=== PATIENT | male | born 1965 | race Asian ===

== ENCOUNTER → 2022-07-17 11:02 | Outpatient (CLI) | payer OTHER, MEDICAID, SELFPAY ==
[2022-07-17 19:21] LABS: Add Manual Diff / Slide Review NO; Basophils Absolute Auto 0 /uL (0-100); Basophils Percent Auto 0.4 % (0-2); Eosinophils Absolute Auto 100 /uL (0-450); Eosinophils Percent Auto 1.9 % (2-4); Hematocrit 41.9 % (41-53); Hemoglobin 14.6 g/dL (13.5-17.5); Lymphocytes Absolute Auto 1900 /uL (1100-4500); Lymphocytes Percent Auto 32.8 % (25-40); Mean Corpuscular HGB Conc 34.9 % (30-36); Mean Corpuscular Hemoglobin 31.7 PG (26-34); Mean Corpuscular Volume 90.6 fL (80-100); Monocytes Absolute Auto 500 /uL (0-900); Monocytes Percent Auto 9.2 % (3-14); Neutrophils Absolute Auto 3100 /uL (1500-7000); Neutrophils Percent Auto 55.7 % (50-75); Platelet Count 174 X10^3/uL (150-400); Red Blood Cell Count 4.63 X10^6/uL (4.5-5.9); Red Cell Distribution Width 13.9 % (11.6-14.8); White Blood Cell Count 5.7 X10^3/uL (4.5-11.0)
[2022-07-17 19:35] LABS: Alanine Aminotransferase 57 IU/L (<50); Albumin 4.1 g/dL (3.5-5.0); Albumin Globulin Ratio 1.4 (1.0-2.8); Alkaline Phosphatase 71 U/L (38-126); Aspartate Aminotransferase 31 IU/L (17-59); BUN Creatinine Ratio 21.4 (6-22); Bilirubin Total 0.6 mg/dL (0.2-1.3); Blood Urea Nitrogen 18 mg/dL (9-20); Calcium 8.6 mg/dL (8.4-10.2); Carbon Dioxide 24 mmol/L (22-32); Chloride 107 mmol/L (98-107); Cholesterol 186 mg/dL (140-199); Estimated Glomerular Filt Rate > 60 mL/min (>60); Globulin 2.9 g/dL (1.7-4.1); Glucose 90 mg/dL (70-100); HDL Cholesterol 62 mg/dL (40-60); HEMOLYSIS < 15 (0-50); LDL Cholesterol Calculated 112 mg/dL (<100); Potassium 4.2 mmol/L (3.4-5.1); Sodium 137 mmol/L (137-145); Triglycerides 61 mg/dL (35-150); Uric Acid 6.2 mg/dL (3.5-8.5)
[2022-07-17 19:57] LABS: Thyroid Stimulating Hormone 0.611 uIU/mL (0.47-4.68)
== END ==
PROVIDERS: Family Provider Family Medicine; PCP Family Medicine; Visit Provider Family Medicine
DX: M79.674 Pain in right toe(s) (principal); Z13.6 Encounter for screening for cardiovascular disorders; I10 Essential (primary) hypertension
CPT/HCPCS: 80053; 80061; 84443; 84550; 85025

== ENCOUNTER → 2022-08-19 14:02 | Outpatient (CLI) | payer OTHER, MEDICAID, SELFPAY ==
[2022-08-19 19:43] LABS: Prostate Specific Antigen Scrn 0.387 ng/mL (0.1-4.0)
[2022-08-21 01:42] LABS: HBsAg Screen Negative (Negative); Hepatitis A Antibody IgM Negative (Negative); Hepatitis B Core Antibody IgM Negative (Negative); Hepatitis C Antibody Non Reactive (Non Reactive)
== END ==
PROVIDERS: Family Provider Family Medicine; PCP Family Medicine; Visit Provider Family Medicine
DX: R74.01 Elevation of levels of liver transaminase levels (principal); Z12.5 Encounter for screening for malignant neoplasm of prostate
CPT/HCPCS: 80074; G0103

== ENCOUNTER → 2024-11-18 08:57 | Outpatient (CLI) | payer BC, SELFPAY ==
[2024-11-18 18:41] LABS: Add Manual Diff / Slide Review NO; Hematocrit 43.8 % (41-53); Hemoglobin 15.3 g/dL (13.5-17.5); Lymphocytes Absolute Auto 1600 /uL (1100-4500); Mean Corpuscular HGB Conc 34.9 % (30-36); Mean Corpuscular Hemoglobin 31.9 PG (26-34); Mean Corpuscular Volume 91.4 fL (80-100); Platelet Count 195 X10^3/uL (150-400)
[2024-11-18 18:51] LABS: Alanine Aminotransferase 49 IU/L (<50); Albumin 4.3 g/dL (3.5-5.0); Albumin Globulin Ratio 1.5 (1.0-2.8); Alkaline Phosphatase 57 U/L (38-126); Blood Urea Nitrogen 17 mg/dL (9-20); Calcium 8.9 mg/dL (8.4-10.2); Carbon Dioxide 22 mmol/L (22-32); Chloride 106 mmol/L (98-107); Cholesterol 197 mg/dL (140-199); Estimated Glomerular Filt Rate > 60 mL/min (>60); Globulin 2.9 g/dL (1.7-4.1); Glucose 96 mg/dL (70-99); HDL Cholesterol 62 mg/dL (40-60); HEMOLYSIS 16 (0-50); Potassium 4.4 mmol/L (3.4-5.1); Sodium 136 mmol/L (137-145); Total Protein 7.2 g/dL (6.3-8.2); Triglycerides 62 mg/dL (35-150)
[2024-11-18 19:35] LABS: TSH w/ Reflex to FT4 0.46 uIU/mL (0.47-4.68)
[2024-11-18 20:02] LABS: Free T4, Direct Thyroxine 1.19 ng/dL (0.78-2.19)
== END ==
PROVIDERS: PCP Family Medicine; Visit Provider Physician Assistant
DX: Z12.5 Encounter for screening for malignant neoplasm of prostate (principal); R74.01 Elevation of levels of liver transaminase levels; I10 Essential (primary) hypertension; M25.50 Pain in unspecified joint; Z13.6 Encounter for screening for cardiovascular disorders
CPT/HCPCS: 80053; 80061; 84439; 84443; 85025; G0103

== ENCOUNTER → 2025-01-05 11:51 | Outpatient (CLI) | payer BC, SELFPAY ==
--- NOTE | 2025-01-05 11:53 | DI.MRI.S_ITS ---
PROCEDURE: MR SHOULDER RT WO CON
== END ==
LOC: MRI 11:52
PROVIDERS: PCP Family Medicine; Referring Provider Physician Assistant; Visit Provider Physician Assistant
DX: M75.111 Incomplete rotator cuff tear or rupture of right shoulder, not specified as traumatic (principal); S43.431A Superior glenoid labrum lesion of right shoulder, initial encounter; M75.51 Bursitis of right shoulder; M77.8 Other enthesopathies, not elsewhere classified; M25.511 Pain in right shoulder; M65.921 Unspecified synovitis and tenosynovitis, right upper arm
CPT/HCPCS: 73221

== ENCOUNTER 2025-02-02 06:15 | Day surgery (SDC) | payer BC, SELFPAY ==
[2025-01-19 08:43] VITALS: BMI 30.8
[2025-02-02] MEDS: LACTATED RINGERS 1,000 ML 42 ML IV (06:46)
[2025-02-02] MEDS: ACETAMINOPHEN 325 MG TABLET 975 MG PO (06:46)
[2025-02-02 06:57] VITALS: BP 152/93; PULSE 54; RESP 16; TEMP 36.4; O2SAT 99
--- NOTE | 2025-02-02 07:14 | PM.PREOP ---
Pre-operative Note Interval Note History & Physical reviewed/Exam performed by Physician: Yes Changes to H&P: No
--- NOTE | 2025-02-02 08:28 | SUR.OPER ---
Beach chair with trimano shoulder positioner. Lower body on padded OR bed, lateral hip post to operative side per surgeon direction. Head in foam padded head cradle, secured with straps. Non-operative arm secured <90 degrees abduction with gel pad under elbow and forearm. Pillow under knees, tape over blanket across chest. Safety belt at thigh. Cloth tape over blanket over lower legs. Surgeon approved final position prior to start of procedure.
[2025-02-02] MEDS: SODIUM CHLORIDE IRRIG SOLUTION 3,000 ML, EPINEPHrine 3 MG IRR ×2 (08:46→09:34)
[2025-02-02 10:48] VITALS: BP 130/78; PULSE 68; RESP 16; TEMP 36.8; O2SAT 98
[2025-02-02 10:53] VITALS: BP 145/78; PULSE 93; RESP 16; TEMP 36.2; O2SAT 95
[2025-02-02 10:58] VITALS: BP 145/85; PULSE 68; RESP 16; O2SAT 98
[2025-02-02 11:02] VITALS: BP 141/83; PULSE 66; RESP 16; TEMP 36.2; O2SAT 98
--- NOTE | 2025-02-02 11:02 | P.OP_ITS ---
Operative Date/Time/Diagnoses Date of procedure: 02/02/25 Time of procedure: 07:45 Pre-op diagnosis: RIGHT shoulder rotator cuff tear, AC joint osteoarthritis and possible SLAP tear Post-op diagnosis: same Procedure & Clinicians Procedure: Right shoulder arthroscopy, rotator cuff repair, open distal clavicle excision and open proximal biceps tenodesis Same procedure(s) as scheduled: Yes Surgeon: Brayan Navarro Assisted?: Yes Enterprise Account Manager: Ana Francois Anesthesia Type: General Operative Notes Findings: Full-thickness rotator cuff tear, slap tear Closure Type: primary Specimen(s): none sent Applied: none Estimated Blood Loss (mL): 20 Blood products transfused: none Procedure in detail: Patient Name: GAYLE PAREDES Date of Operation: 02/02/25 Preoperative diagnosis: Right Shoulder Rotator Cuff Tear, Biceps Tendinopathy and Acromioclavicular Osteoarthritis Procedure performed: Right Shoulder Diagnostic Arthroscopy, Rotator Cuff Repair, Open Biceps Tenodesis and Open Distal Clavicle Excision Postoperative diagnosis: Same Primary Surgeon: Brayan Navarro MD Secondary Surgeon: DAVID Cyr Physician Enterprise Account Manager was used throughout the entirety of the case. They assisted with room set up, patient positioning, draping, retraction, reduction, fixation and closure. They were essential for the success of the case. Anesthesia: General EBL: 20 ml Implants: Arthrex Knotless 2.6 Fiber Isreal x1 as a medial row Arthrex Proximal Biceps Tenodesis Button Indication for Surgery: Nonoperative management failed to resolve symptoms. The risks, benefits, and alternatives were discussed. Risks included pain, bleeding, infection, damage to nearby structures, lack of symptom relief, implant complications, stiffness, need for further surgeries, DVT, PE, stroke, and even . They signed a written consent form. Examination Under Anesthesia: ROM: Forward flexion 170, abduction 170 Anterior load and shift: Grade 1 Posterior load and shift: Grade 1 Inferior sulcus: Grade 1 Diagnostic Findings: Rotator interval: Normal Biceps tendon & SLAP: Fall SLAP tear. No degeneration to the biceps tendon Subscapularis: Intact Rotator Cuff: Full-thickness rotator cuff tear of the supraspinatus HAGL: No HAGL Labrum: Intact Glenoid Cartilage: Grade 2-3 chondromalacia Humeral Head Cartilage: Mild chondromalacia Procedure in Detail: The patient was met in the preoperative holding on the day of the procedure. Operative extremity was signed. Consent was verified. The patient desired to proceed. Regional anesthesia was obtained in the preoperative area. They were brought to the operating room and surrendered to anesthesia. Once general anesthesia was obtained they were placed in the beach chair position. All bony prominences were well-padded. They were then prepped and draped in the standard sterile fashion. A surgical timeout was held to confirm the patient procedure, identity, laterality, allergies, images, and antibiotics. All were in agreement and we proceeded. A standard diagnostic arthroscopy was performed utilizing posterior and anterior superior portal sites. The anterior superior portal site was created under direct visualization. The findings of the diagnostic arthroscopy can be found above. Was unable to visualize the full-thickness tear from inside the joint. Biceps tendon was cut using arthroscopic scissors and debrided back with a sucker shaver. Mini-Open Subpectoral Biceps Tenodesis: We then turned our attention to the biceps tenodesis, a 4 cm longitudinal incision was made near the axillary fold centered over the inferior border of the pectoralis major tendon. Electrocautery was used to obtain hemostasis. The fascia was opened with dissection scissors in line with the course of the neurovascular structures. Blunt digital dissection was used to identify the intertubercular groove just under the pectoralis major tendon. The long head of the biceps tendon was visualized within this interval. The short head of the biceps was retracted with my finger and the right angle was used to deliver the tendon of the long head of the biceps out of the wound. The groove was then prepared with a rogers elevator. The drill for the biceps button was placed at the inferior edge of the pec major tendon within the groove. The drill was then removed and the button placed. The tendon was then reduced down on to the surface of the humerus. A free needle was used to place a throw through the biceps tendon and this was tied. The suture limbs were cut and the wound was irrigated. The subcutaneous tissue was closed using interrupted 2- 0 Vicryl followed by running 3-0 Monocryl in subcuticular fashion. Subacromial Decompression: The obturator was placed into the subacromial space along the underside of the acromion from the posterior portal passing lateral to the coracoacromial ligament and out the anterior incision. The crystal cannula was threaded over this and the serfas wand was placed into the cannula. The camera was inserted and the cannula was backed out until the camera and instruments were in the subacromial space. The serfas wand was used to excise tissue from the underside of the acromion and establish a small space for viewing. The leading edge of the CA ligament was released. A lateral incision was made after localization with a spinal needle. The shaver was inserted and the bursa was excised completely, taking care to excise all bursa from the anterior and lateral gutters. The rotator cuff was protected throughout. The rotator cuff was found to have a full thickness tear and would require a repair. The shaver was then used to mee the underside of the acromion of all portions that were downsloping or not smooth. The shoulder was taken through a range of motion and the bursa was found to be fully excised. Rotator Cuff Repair: The rotator cuff tear was identified from the subacromial space. It was decided that this would require a single row repair with the Knotless 2.6 Fiber Taks. A Arthrex passport was placed into our lateral portal. An additional portal was created as a viewing portal. The tendon was tested and it was mobile and could be reduced to the original footprint. The frayed edges of the rotator cuff were debrided back. The new footprint was debrided of soft tissue. A spinal needle was placed vertically just lateral to the acromion to determine the trajectory of the implants. We utilized one implant that was placed just lateral to the humeral head cartilage in the old rotator cuff foot print. The suture limbs were left out of the percutaneous portal. One of the repair stitches was grabbed through the passport. The scorpion was loaded and the suture was passed through the anterior portion of the rotator cuff tendon. The free end was then passed out anteriorly to keep it out of the way. The second repair stitch was brought through the passport, scorpion loaded and passed through the rotator cuff tendon slightly posterior to the first pass. All four limbs of the anterior implant were then passed through the passport. The shuttling suture was loaded and the repair sutures were passed through the implant. They were not secured tightly yet, because we did not want to closed down the repair before throwing the other sutures. After further visualization of the repair it was identified that posteriorly there was still a small dog ear. Utilizing the free sutures that were coming out of the implant we through 1 suture through the dog-ear using the scorpion. We then hand tied the 2 free ends together which brought down the dog-ear nicely. The shoulder was taken through a range of motion which demonstrated a fully repair rotator cuff which moved continuously with the movement of the shoulder. Final images were obtained and the instruments were removed from the shoulder. The incisions were closed with 3-0 Nylon, sterile dressing and sling were applied. Postoperative Plan: Same day discharge Sling use for 6 weeks Physical Therapy consult placed Follow up with ortho in 2 weeks for suture removal and clinical examination Brayan Navarro MD Complications: none Post-operative Condition: stable Disposition: PACU
== END 2025-02-02 11:44 | disposition home or self-care (01) ==
PROVIDERS: PCP Family Medicine; Referring Provider Orthopaedic Surgery; Visit Provider Orthopaedic Surgery
PROC: (CPT 29827; principal; 2025-02-02 07:45)
DX: M75.121 Complete rotator cuff tear or rupture of right shoulder, not specified as traumatic (principal); M19.011 Primary osteoarthritis, right shoulder; S43.431A Superior glenoid labrum lesion of right shoulder, initial encounter; M75.21 Bicipital tendinitis, right shoulder; G89.18 Other acute postprocedural pain; F17.210 Nicotine dependence, cigarettes, uncomplicated; M94.211 Chondromalacia, right shoulder
CPT/HCPCS: 23430; 29827; 23120; 64415; C1713; J0165; J0689; J1100; J2405; J2704; J3010; J7120